=== PATIENT | female | born 1930 | race Caucasian/White ===

== ENCOUNTER → 2016-12-21 | Outpatient (CLI) | payer OTHER ==
[~2016-12-21] MED LIST: ASPEC325 PO
[2016-12-21 12:14] LABS: HEMATOCRIT 37.7 % (37-47); MEAN CELL VOLUME 92.2 fL (80-100); MEAN CORPUSCULAR HEMOGLOBIN 30.3 pg (25-34); MEAN CORPUSCULAR HGB CONC 32.9 g/dl (32-36); PLATELET COUNT 285 K/uL (130-400); RED BLOOD COUNT 4.09 M/uL (4.2-5.4)
[2016-12-21 12:22] LABS: URINE APPEARANCE CLOUDY (CLEAR); URINE BILIRUBIN NEG (NEG); URINE COLOR YELLOW; URINE EPITHELIAL CELL AUTO >30 /lpf (0-5); URINE NITRITE NEG (NEG); URINE SPECIFIC GRAVITY 1.015 (1.000-1.030); UROBILINOGEN NEG (NEG)
[2016-12-21 12:28] LABS: BLOOD UREA NITROGEN 43 mg/dl (7-18); BUN/CREATININE RATIO 22.5 (10-20); CALCIUM 9.6 mg/dl (8.5-10.1); CARBON DIOXIDE 28 mmol/L (21-32); CHLORIDE 105 mmol/L (98-107); GLUCOSE 85 mg/dl (70-99); PHOSPHORUS 2.8 mg/dl (2.5-4.9); POTASSIUM 4.3 mmol/L (3.5-5.1); SODIUM 141 mmol/L (136-145)
[2016-12-21 12:29] LABS: MANUAL MICROSCOPIC REQUIRED? NO; REVIEW REQ? NO
[2016-12-21 12:45] LABS: URINE PROTIEN/CREAT RATIO 0.8 (0-0.2); URINE TOTAL PROTEIN 47.3 mg/dl (0-11.9)
== END | disposition home or self-care (01) ==
LOC: C.LAB1850 11:01
PROVIDERS: ATTEND Internal Medicine Nephrology
DX: N18.4 Chronic kidney disease, stage 4 (severe) (principal); D64.9 Anemia, unspecified

== ENCOUNTER → 2017-03-22 | Outpatient (CLI) | payer OTHER ==
[2017-03-22 12:09] LABS: HEMATOCRIT 36.8 % (37-47); MEAN CELL VOLUME 94.6 fL (80-100); MEAN CORPUSCULAR HEMOGLOBIN 30.3 pg (25-34); MEAN CORPUSCULAR HGB CONC 32.1 g/dl (32-36); MEAN PLATELET VOLUME 9.7 fL (7.4-10.4); PLATELET COUNT 310 K/uL (130-400); RED BLOOD COUNT 3.89 M/uL (4.2-5.4); WHITE BLOOD COUNT 7.64 K/uL (4.8-10.8)
[2017-03-22 12:19] LABS: BLOOD UREA NITROGEN 71 mg/dl (7-18); BUN/CREATININE RATIO 28.3 (10-20); CALCIUM 9.6 mg/dl (8.5-10.1); CARBON DIOXIDE 29 mmol/L (21-32); CHLORIDE 106 mmol/L (98-107); GLUCOSE 96 mg/dl (70-99); POTASSIUM 4.6 mmol/L (3.5-5.1); SODIUM 141 mmol/L (136-145)
[2017-03-22 12:22] LABS: PHOSPHORUS 3.4 mg/dl (2.5-4.9)
== END | disposition home or self-care (01) ==
LOC: C.LAB1850 10:51
PROVIDERS: ATTEND Internal Medicine Nephrology
DX: N18.3 Chronic kidney disease, stage 3 (moderate) (principal)

== ENCOUNTER 2017-05-08 11:45 | Emergency (ER) | payer OTHER ==
[2017-05-08 11:49] VITALS: PULSE 0
--- NOTE | 2017-05-08 14:25 | EMERGENCY ROOM VISIT NOTE ---
History Report prepared by Sita: Alicia Chino Under the Supervision of: Dr. Eugenia Masterson D.O. First contact with patient: 11:48 Chief Complaint: CARDIAC ARREST Stated Complaint: CARDIAC ARREST History of Present Illness The patient is an 87 year old female who presents to the Emergency Room in persistent cardiac arrest starting 30 minutes ago. The patient arrested en route to the ED. She lives alone and had called EMS earlier today. They found her pale, lethargic, and diaphoretic. She was on her way to the ED by BLS when she arrested. She was intubated with a 7.0 tube 22 at the lip. End tidal was initially in the upper 20s and upon arrival in the ED was in the lower 20s. On arrival, CPR in progress. Pt has received multiple doses of epi in the field. Accucheck normal per medic. Pt has been in [facility]. The history is limited due to the patient being in cardiac arrest. Source of History: EMS History Limited By: cardiac arrest Onset: 30 minutes ago Position: other (global) Quality: other (cardiac arrest) Timing: other (persistent) Review of Systems Unobtainable due to cardiac arrest. Past Medical & Surgical Medical Problems: (1) Cardiac arrest (2) Family History Noncontributory secondary to age. Social History Housing Status: lives alone Current/Historical Medications Unable to Obtain Active Prescriptions or Reported Meds Allergies Coded Allergies: No Known Allergies (Unverified , none, 06/24/09) Physical Exam Vital Signs Date Time Temp Pulse Resp B/P (MAP) Pulse Ox O2 Delivery O2 Flow Rate FiO2 05/08/17 11:49 0 05/08/17 11:49 0 05/08/17 11:46 Ambu-Bag 15.0 Physical Exam GENERAL: Patient is elderly and pale. Oziel device in place performing compressions. EYE EXAM: pupils fixed and dilated OROPHARYNX: orally intubated, secretions noted in ET tube NECK: supple, no crepitus, no adenopathy LUNGS: bilateral breath sounds with bagging, no spontaneous respirations, coarse breath sounds bilaterally HEART: pulseless ABDOMEN: no evidence of trauma PELVIS: stable SKIN: pale and slightly mottled EXTREMITIES: no palpable distal pulses NEURO EXAM: GCS of 3. Medical Decision & Procedures Procedure Bedside Ultrasound: No cardiac motion, no tamponade. ED Course 1147: The patient was evaluated in room B1. A complete history and physical exam was performed. 1159: The bedside ultrasound revealed the patient is asystolic. 1200: I attempted to contact the patient's son who is her next of kin. He did not answer, so I left a message. 1221: The son has arrived in the ED. Lengthy discussion with him regarding recent hx of patient, PMHx, presentation today and possible ddx. 1315: The surveyor has arrived. I have discussed the patient's case with her. Medical Decision Differential diagnosis: Etiologies such as cardiac ischemia, aortic dissection, pulmonary embolism, electrolyte abnormality, acidosis, tension pneumothorax, hypothermia, hypovolemia, intracranial event, as well as others were entertained. Please refer to code summary sheet for additional details. Elderly pt with prolonged down time despite witness arrest, immediate initiation of CPR, and prompt initiation of ACLS arrived in [facility]. Rhythm check revealed asystole and bedside US with no cardiac motion. Unclear etiology of recent symptoms which prompted call to her life alert and 911. This was discussed with pt's son on arrival. Pt with multiple medical problems, son unsure of med hx and meds or any other recent changes other than she hadn't been feeling well for several days. Impression Primary Impression: Cardiac arrest Scribe Attestation The scribe's documentation has been prepared under my direction and personally reviewed by me in its entirety. I confirm that the note above accurately reflects all work, treatment, procedures, and medical decision making performed by me. Departure Information Dispostion Prescriptions Unable to Obtain Active Prescriptions or Reported Meds Referrals Ave Colin D.O. (PCP) Patient Instructions My [facility]
--- NOTE | 2017-05-08 14:28 | Critical Care Consultation ---
Critical Care Consultation Date of Consultation: May 08, 2017. Attending Physician: Dr. Masterson Reason for Consultation: Cardiac arrest History of Present Illness Patient is an 87-year-old female who came in to the [facility] emergency department and a cardiac arrest. Per EMS she was initially found unresponsive with agonal respirations. She went into an asystolic arrest was intubated in the field, CPR was started and had been in progress for 30 minutes prior to arrival at the emergency department. Social History Smoking Status: Unknown if Ever Smoked Allergies Coded Allergies: No Known Allergies (Unverified , none, 06/24/09) Home Medications Unable to Obtain Active Prescriptions or Reported Meds Review of Systems Unable to be obtained Physical Exam Date Time Temp Pulse Resp B/P (MAP) Pulse Ox O2 Delivery O2 Flow Rate FiO2 05/08/17 11:49 0 05/08/17 11:49 0 05/08/17 11:46 Ambu-Bag 15.0 Pupils fixed and dilated, no spontaneous respirations. CPR in progress by Oziel device Diagnostic Results I performed a limited bedside ultrasound during compression interruption. Patient was at cardiac standstill, smoke was noted in the right and left ventricles, patient was asystolic on the monitor and the code was called by Dr. Masterson Assessment & Plan (1) Cardiac arrest Patient had greater than 30 minutes CPR, asystolic EKG and no mechanical cardiac activity, chance of survivability extremely unlikely, code called (2)
== END 2017-05-08 12:05 | disposition expired ==
LOC: EDBD 11:45 → C.EDB 11:48 → C.EDA 12:05
DX: I46.9 Cardiac arrest, cause unspecified (principal)